=== PATIENT | female | born 1950 | race Caucasian/White ===

== ENCOUNTER 2020-03-07 13:59 | Emergency (ER) | payer MEDICARE, BC ==
--- NOTE | 2020-03-07 14:23 | EDM.PDOC ---
ED HPI GENERAL MEDICAL PROBLEM - General Chief Complaint: Chest Pain Stated Complaint: CHEST PAINS Time Seen by Provider: 03/07/20 14:10 Source of Information: Reports: Patient History Limitations: Reports: No Limitations - History of Present Illness INITIAL COMMENTS - FREE TEXT/NARRATIVE: Patient presents to ER with complaints of bilateral chest pain that radiates to her back. States hurts worse with taking a deep breath. Feels she can breathe better if sitting upright. Denies any diaphoresis. No nausea or vomiting. States awoke with this pain this am and hasn't resolved. Did eat her usual meals today, did not make the pain worse or better. Had her gallbladder removed in December due to multiple stones, pain is not as severe as then. Does have loose stools now as a result of that. Was doing yard work the last 2 days , does not feel she lifted anything too heavy or strained her chest. No history of stent, [place]. Onset: Today Duration: Hour(s):, Constant Location: Reports: Chest, Back Quality: Reports: Ache, Sharp Severity: Severe Worsens with: Reports: Breathing (taking deep breaths) Associated Symptoms: Reports: Chest Pain. Denies: Confusion, Cough, Diaphoresis , Fever/Chills, Loss of Appetite, Nausea/Vomiting, Shortness of Breath, Syncope , Weakness Chest Pain Score (Numeric/FACES): 8 - Related Data Allergies Allergy/AdvReac Type Severity Reaction Status Date / Time atorvastatin Allergy Other Verified 03/07/20 14:29 Sulfa (Sulfonamide Allergy Hives Verified 03/07/20 14:29 Antibiotics) Home Meds: Home Meds LORazepam 2 mg PO PCBED 08/18/14 [History] Levothyroxine 75 mcg PO ACBRK 08/18/14 [History] Lovastatin [Mevacor] 40 mg PO DAILY 08/18/14 [History] Multivitamin with Minerals [Multiple Vitamin] 1 tab PO DAILY 08/18/14 [History] NIFEdipine [Procardia XL] 1 tab PO DAILY 08/18/14 [History] Anastrozole [Arimidex] 1 mg PO DAILY 09/28/18 [History] Denosumab [Prolia] 60 mg SUBCUT Q180D 09/28/18 [History] Metoprolol Succinate [Toprol XL] 25 mg PO DAILY 09/28/18 [History] Venlafaxine HCl [Venlafaxine ER] 150 mg PO DAILY 09/28/18 [History] Calcium Carb, Citrate/Vit D3 [Calcium + D3 ER Tablet] 1 each PO DAILY 10/04/18 [ History] Famotidine 20 mg PO DAILY 03/07/20 [History] Turmeric Root Extract [Turmeric] 750 mg PO BID 03/07/20 [History] traZODone HCl [Trazodone HCl] 50 - 100 mg PO DAILY 03/07/20 [History] Past Medical History HEENT History: Reports: Cataract Cardiovascular History: Reports: Afib, High Cholesterol, Hypertension Other Cardiovascular History: valvular heart disease. raynauds syndrome Respiratory History: Reports: COPD, Sleep Apnea Gastrointestinal History: Reports: Colon Polyp, GERD Genitourinary History: Reports: None [employer] History: Reports: None Musculoskeletal History: Reports: None, Arthritis, Fracture, Osteoporosis Other Neuro History: RLS Psychiatric History: Reports: Anxiety, Depression Other Psychiatric History: insomnia Endocrine/Metabolic History: Reports: Hyperparathyroidism, Hypothyroidism, Obesity/BMI 30+ Hematologic History: Reports: None Immunologic History: Reports: None Oncologic (Cancer) History: Reports: Breast Dermatologic History: Reports: Eczema - Past Surgical History HEENT Surgical History: Reports: Eye Surgery, Tonsillectomy Cardiovascular Surgical History: Reports: Varicose Respiratory Surgical History: Reports: None GI Surgical History: Reports: Colonoscopy Female Surgical History: Reports: Tubal Ligation, Other (See Below) Other Female Surgeries/Procedures: breast lumpectomy. breast surgery Endocrine Surgical History: Reports: Parathyroidectomy Other Endocrine Surgeries/Procedures: thyroid surgery Neurological Surgical History: Reports: None Musculoskeletal Surgical History: Reports: ORIF Oncologic Surgical History: Reports: Lumpectomy Dermatological Surgical History: Reports: None ED ROS GENERAL - Review of Systems Review Of Systems: See Below Constitutional: Denies: Fever, Chills, Malaise, Weakness, Fatigue, Decreased Appetite HEENT: Denies: Ear Pain, Nose Pain, Sinus Problem Respiratory: Reports: Cough. Denies: Shortness of Breath Cardiovascular: Reports: Chest Pain, Edema. Denies: Lightheadedness Endocrine: Denies: Fatigue GI/Abdominal: Denies: Abdominal Pain, Nausea, Vomiting : Reports: No Symptoms Musculoskeletal: Reports: No Symptoms Skin: Reports: No Symptoms Neurological: Reports: No Symptoms ED EXAM, GENERAL - Physical Exam Exam: See Below Exam Limited By: No Limitations General Appearance: Alert, WD/WN, No Apparent Distress Ears: Normal External Exam, Normal TMs Nose: Normal Inspection, Normal Mucosa, No Blood Throat/Mouth: Normal Inspection, Normal Oropharynx Head: Normocephalic Neck: Normal Inspection, Supple, Non-Tender Respiratory/Chest: No Respiratory Distress, Lungs Clear, Normal Breath Sounds Cardiovascular: Regular Rate, Rhythm, No Edema GI/Abdominal: Normal Bowel Sounds, Soft, Non-Tender Extremities: Normal Inspection, No Pedal Edema Neurological: Alert, Oriented Skin Exam: Warm, Dry Course - Vital Signs Last Recorded V/S: Last Vital Signs Temp 97.9 F 03/07/20 14:30 Pulse 63 03/07/20 14:30 Resp 18 03/07/20 14:30 BP 148/66 H 03/07/20 14:30 Pulse Ox 98 03/07/20 14:30 - Orders/Labs/Meds Orders: Active Orders 24 hr Category Date Time Status EKG 12 Lead [EKG Documentation Completion] [RC] STAT Care 03/07/20 14:52 Active Labs: Laboratory Tests 03/07/20 03/07/20 03/07/20 Range/Units 14:24 14:24 14:24 WBC 7.7 (4.0-10.0) x10^3/uL RBC 4.52 (4.00-5.50) x10^6/uL Hgb 13.8 (12.0-16.0) g/dL Hct 41.3 (33.0-47.0) % MCV 91.4 (78.0-93.0) fL MCH 30.5 (26.0-32.0) pg MCHC 33.4 (32.0-36.0) g/dL RDW Coeff of [place] 14.9 (10.0-15.0) % Plt Count 217 (130-400) x10^3/uL Neut % (Auto) 71.9 (50.0-80.0) % Lymph % (Auto) 16.3 L (25.0-50.0) % [place] % (Auto) 10.7 (2.0-11.0) % Eos % (Auto) 0.7 (0.0-4.0) % Baso % (Auto) 0.4 (0.2-1.2) % D-Dimer, Quantitative 0.42 (<=0.58) mg/LFEU Sodium 143 (136-145) mmol/L Potassium 4.0 (3.5-5.1) mmol/L Chloride 104 (98-107) mmol/L Carbon Dioxide 27 (21-32) mmol/L Anion Gap 16.0 (10-20) mmol/L BUN 24 H (7-18) mg/dL Creatinine 1.0 (0.55-1.02) mg/dL Est Cr Clr Drug Dosing 42.68 mL/min Estimated GFR (MDRD) 55 Glucose 121 H (74-106) mg/dL Calcium 9.1 (8.5-10.1) mg/dL Corrected Calcium 9.34 (8.5-10.1) mg/dL Total Bilirubin 0.4 (0.2-1.0) mg/dL AST 22 (15-37) U/L ALT 26 (14-59) U/L Alkaline Phosphatase 73 (46-116) U/L Lactate Dehydrogenase 204 (81-234) U/L Creatine Kinase 273 H* (26-192) U/L Troponin I < 0.017 (<=0.056) ng/mL C-Reactive Protein 1.4 H (<=0.9) mg/dL Total Protein 7.1 (6.4-8.2) g/dL Albumin 3.7 (3.4-5.0) g/dL Globulin 3.4 Albumin/Globulin Ratio 1.09 Amylase 73 (25-115) U/L Lipase 210 (73-393) U/L Meds: Medications Discontinued Medications Generic Name Dose Route Start Last Admin Trade Name Eloyq PRN Reason Stop Dose Admin Ketorolac Tromethamine 60 mg 03/07/20 15:10 03/07/20 17:00 Toradol IM 03/07/20 15:11 Not Given ONETIME ONE - Re-Assessments/Exams Free Text/Narrative Re-Assessment/Exam: 03/07/20 15:08 Labs are all essentially normal. CK is elevated, LDH and troponin are negative. Discussed with patient, likely chest wall/musculoskeletal concern. Does admit that didn't drink much for fluids over last 2 days and normally does. Offered IV fluids but declines, states will be able to rehydrate her self. Toradol to be given for discomfort. Advised to return if pain worsens, becomes syncopal or short of breath. Departure - Departure Time of Disposition: 15:14 Disposition: Home, Self-Care 01 Condition: Fair Clinical Impression: Atypical chest pain Instructions: Chest Wall Pain Referrals: Yaquelin Perez PA-C [Primary Care Provider] - Forms: ED Department Discharge Additional Instructions: 1. Push fluids 2. Tylenol or ibuprofen for fever or further discomfort 3. Return if symptoms persist, worsen or develop lightheadedness, shortness of breath Sepsis Event Note - Focused Exam Vital Signs: Vital Signs Temp Pulse Resp BP Pulse Ox 03/07/20 14:30 97.9 F 63 18 148/66 H 98 Date Exam was Performed: 03/07/20 Time Exam was Performed: 18:41 - My Orders Last 24 Hours: My Active Orders 03/07/20 14:52 EKG 12 Lead [EKG Documentation Completion] [RC] STAT - Assessment/Plan Last 24 Hours: My Active Orders 03/07/20 14:52 EKG 12 Lead [EKG Documentation Completion] [RC] STAT
[2020-03-07 14:53] LABS: CHLORIDE,CL 104 mmol/L (98-107); SODIUM,NA 143 mmol/L (136-145)
[2020-03-07] MEDS ORDERED: Ketorolac 60 MG/2 ML SDV IM ONE (15:10)
--- NOTE | 2020-03-07 15:11 | CR ---
[id number] RAD/RAD Chest PA And Lateral EXAM: FRONTAL AND LATERAL CHEST INDICATION: CHEST PAIN. COMPARISON: None. DISCUSSION: The lungs are hypoinflated with central vascular crowding and bibasilar atelectasis. No infiltrates are identified, but the volume loss in the lung bases could obscure early findings. Normal heart size. IMPRESSION: 1. Low lung volumes with mild bibasilar atelectasis. Don Carr MD 03/07/20 [id number] Thank you for allowing us to participate in the care of your patient.
== END 2020-03-07 17:00 | disposition home or self-care (01) ==
LOC: VM.ED 13:59
DX: R07.89 Other chest pain (principal); I48.91 Unspecified atrial fibrillation; E78.00 Pure hypercholesterolemia, unspecified; I10 Essential (primary) hypertension; J44.9 Chronic obstructive pulmonary disease, unspecified; K21.9 Gastro-esophageal reflux disease without esophagitis; F41.9 Anxiety disorder, unspecified; F32.9 Major depressive disorder, single episode, unspecified; E03.9 Hypothyroidism, unspecified; E66.9 Obesity, unspecified; Z68.30 Body mass index [BMI] 30.0-30.9, adult; Z88.8 Allergy status to other drugs, medicaments and biological substances; Z88.2 Allergy status to sulfonamides; Z79.899 Other long term (current) drug therapy
CPT/HCPCS: 36415; 71046; 80053; 82150; 82550; 83615; 83690; 84484; 85025; 85379; 86140; 93005; 99284-GF; 99285-25